=== PATIENT | female | born 1995 | race Hispanic/Latino ===

== ENCOUNTER 2021-01-15 13:36 | Emergency (ER) | payer OTHER, SELFPAY ==
[2021-01-15 14:25] LABS: Urine Blood 3+ (Negative); Urine Glucose Negative (Negative); Urine Protein 2+ (Negative); Urine Specific Gravity >=1.030 (1.005-1.030)
[2021-01-15 15:16] LABS: Urine Specific Gravity/Preg >1.030 (1.005-1.030)
[2021-01-15 16:00] LABS: Absolute Lymphocytes (CBC) 1.7 K/uL (0.7-4.9); Basophils % 0.3 % (0-1.3); Hematocrit 37.7 % (36.0-45.0); Lymphocytes % 13.9 % (15.3-44.8); MPV 7.3 fL (7.6-11.3); RBC Red Blood Cell Count 4.43 M/uL (3.86-4.86)
[2021-01-15] MEDS ORDERED: NA CHLORIDE 0.9% 1,000 ML ONE (16:05)
[2021-01-15 16:16] LABS: ALT/SGPT 19 U/L (12-78); AST/SGOT 12 U/L (15-37); Albumin 4.1 g/dL (3.4-5.0); Alkaline Phosphatase 88 U/L (45-117); BUN Blood Urea Nitrogen 12 mg/dL (7-18); Bicarbonate 26 mmol/L (21-32); Bilirubin Direct < 0.1 mg/dL (0-0.2); Bilirubin Total 0.2 mg/dL (0.2-1.0); Glucose Level 95 mg/dL (74-106); Lipase 91 U/L (73-393); Potassium 3.5 mmol/L (3.5-5.1); Protein, Total 8.3 g/dL (6.4-8.2); Sodium Level 139 mmol/L (136-145)
--- NOTE | 2021-01-15 16:58 | RAD REPORT ---
EXAM DESCRIPTION: CTAbdomen Pelvis W Contrast - 01/15/2021 4:47 pm CLINICAL HISTORY: Abdominal pain. LLQ;Abd pain COMPARISON: No comparisons TECHNIQUE: Biphasic CT imaging of the abdomen and pelvis was performed with 100 ml non-ionic IV cont rast. All CT scans are performed using dose optimization technique as appropriate and may include automated exposure control or mA/KV adjustment according to patient size. FINDINGS: The lung bases are clear. Small hiatal hernia. The liver, spleen, pancreas, adrenal glands and kidneys are within normal limits. No bowel obstruction, free air, free fluid or abscess. The appendix is normal. No evidence of signi ficant lymphadenopathy. No suspicious bony findings. IMPRESSION: No acute intra-abdominal or pelvic finding.
--- NOTE | 2021-01-15 18:25 | EDPHYS ---
Physician Documentation [facility] Name: Rachel Wilhelm Age: 25 yrs Sex: Female : 1995 Arrival Date: 01/15/2021 Time: 13:44 Bed 27 Private MD: ED Physician Calos Franco HPI: 01/15 16:14 This 25 yrs old Female presents to ER via Ambulatory with complaints of kdr Constipation, Urinary Issue. 16:14 The patient presents with abdominal pain in the lower abdomen, in the left lower kdr quadrant. Onset: The symptoms/episode began/occurred suddenly, yesterday, at 04:00. The symptoms do not radiate. Associated signs and symptoms: Pertinent positives: Being in small amount of defecation. The symptoms are described as achy, crampy, intermittent, stabbing, vague, waxing/waning. Modifying factors: The symptoms are alleviated by nothing, the symptoms are aggravated by coughing, breathing deeply, emotional upset, movement. Severity of pain: At its worst the pain was moderate in the emergency department the pain has improved moderately. The patient has not experienced similar symptoms in the past. The patient has not recently seen a physician. Historical: - Allergies: 14:00 No Known Allergies; tw2 - Home Meds: 14:00 None [Active]; tw2 - PMHx: 14:00 None; tw2 - PSHx: 14:00 None; tw2 - Immunization history:: Client reports having NOT received the Covid vaccine. - Social history:: Smoking status: Patient denies any tobacco usage or history of. ROS: 16:14 Constitutional: Negative for fever, chills, and weight loss, Eyes: Negative for injury, kdr pain, redness, and discharge, Neck: Negative for injury, pain, and swelling, Cardiovascular: Negative for chest pain, palpitations, and edema, Respiratory: Negative for shortness of breath, cough, wheezing, and pleuritic chest pain, Back: Negative for injury and pain, : Negative for injury, bleeding, discharge, and swelling, MS/Extremity: Negative for injury and deformity, Skin: Negative for injury, rash, and discoloration, Neuro: Negative for headache, weakness, numbness, tingling, and seizure activity. Psych: Negative for depression, anxiety, suicide ideation, homicidal ideation, and hallucinations, Allergy/Immunology: Negative for hives, rash, and allergies, Endocrine: Negative for neck swelling, polydipsia, polyuria, polyphagia, and marked weight changes, Hematologic/Lymphatic: Negative for swollen nodes, abnormal bleeding, and unusual bruising. 16:14 Abdomen/GI: Positive for abdominal pain, abdominal cramps, Negative for vomiting, abdominal distension, anorexia, dysphagia, hematemesis, black/tarry stool, rectal pain, rectal bleeding. Exam: 16:14 Constitutional: This is a well developed, well nourished patient who is awake, alert, kdr and in no acute distress. Head/Face: Normocephalic, atraumatic. Eyes: Pupils equal round and reactive to light, extra-ocular motions intact. Lids and lashes normal. Conjunctiva and sclera are non-icteric and not injected. Cornea within normal limits. Periorbital areas with no swelling, redness, or edema. Neck: Trachea midline, no thyromegaly or masses palpated, and no cervical lymphadenopathy. Supple, full range of motion without nuchal rigidity, or vertebral point tenderness. No Meningismus. Chest/axilla: Normal chest wall appearance and motion. Nontender with no deformity. No lesions are appreciated. Cardiovascular: Regular rate and rhythm with a normal S1 and S2. No gallops, murmurs, or rubs. Normal PMI, no JVD. No pulse deficits. Respiratory: Lungs have equal breath sounds bilaterally, clear to auscultation and percussion. No rales, rhonchi or wheezes noted. No increased work of breathing, no retractions or nasal flaring. Back: No spinal tenderness. No costovertebral tenderness. Full range of motion. Skin: Warm, dry with normal turgor. Normal color with no rashes, no lesions, and no evidence of cellulitis. MS/ Extremity: Pulses equal, no cyanosis. Neurovascular intact. Full, normal range of motion. Neuro: Awake and alert, GCS 15, oriented to person, place, time, and situation. Cranial nerves II-XII grossly intact. Motor strength 5/5 in all extremities. Sensory grossly intact. Cerebellar exam normal. Normal gait. 16:14 Abdomen/GI: Inspection: abdomen appears normal, Bowel sounds: normal, Palpation: soft, mild abdominal tenderness, in the left lower quadrant, mass, is not appreciated, rebound tenderness, is not appreciated, voluntary guarding, involuntary guarding. Vital Signs: 13:58 BP 126 / 85; Pulse 110; Resp 17; Temp 98.2(TE); Pulse Ox 100% on R/A; Weight 77.11 kg tw2 (R); Height 5 ft. 6 in. (167.64 cm); Pain 3/10; 19:11 BP 121 / 78; Pulse 88; Resp 17; Pulse Ox 100% on R/A; oh 13:58 Body Mass Index 27.44 (77.11 kg, 167.64 cm) tw2 MDM: 16:14 Data reviewed: vital signs, nurses notes, lab test result(s), radiologic studies. kdr Counseling: I had a detailed discussion with the patient and/or guardian regarding: the historical points, exam findings, and any diagnostic results supporting the discharge/admit diagnosis, lab results, radiology results, the need for outpatient follow up. 18:24 Patient medically screened. kdr 19:22 ED course: Given the blood and ketones and protein in the urine along with the elevated kdr white count and negative abdominal CT, give the patient 3 days of Bactrim to cover possible occult UTI. ED course: Patient was happy with the care provided and the plan for discharge and follow-up. 01/15 14:25 Order name: Urine Dipstick-Ancillary EDMS 01/15 14:26 Order name: Urine --Ancillary (enter results); Complete Time: 18:21 bd 01/15 15:34 Order name: Basic Metabolic Panel; Complete Time: 18:21 kdr 01/15 15:34 Order name: CBC with Diff; Complete Time: 18:21 kdr 01/15 15:34 Order name: Hepatic Function; Complete Time: 18:21 kdr 01/15 15:34 Order name: Lipase; Complete Time: 18:21 kdr 01/15 15:34 Order name: IV Saline Lock; Complete Time: 15:52 kdr 01/15 15:34 Order name: Labs collected and sent; Complete Time: 15:52 kdr 01/15 15:34 Order name: CT Abd/Pelvis - IV Contrast Only; Complete Time: 18:21 kdr Administered Medications: 15:42 Drug: NS 0.9% 1000 ml Route: IV; Rate: 1 bolus; Site: right antecubital; oh Point of Care Testing: Urine : 14:26 hCG Reading: Negative; oh Disposition Summary: 01/15/21 18:24 Discharge Ordered Location: Home kdr Problem: new kdr Symptoms: have improved kdr Condition: Stable kdr Diagnosis - Abdominal pain, unspecified kdr Followup: kdr - With: Private Physician - When: 2 - 3 days - Reason: If symptoms return, Further diagnostic work-up, Recheck today's complaints, Continuance of care, Re-evaluation by your physician Discharge Instructions: - Discharge Summary Sheet kdr - Abdominal Pain, Adult kdr Forms: - Medication Reconciliation Form kdr - Thank You Letter kdr Prescriptions: - Bactrim DS 800-160 mg Oral Tablet - take 1 tablet by ORAL route every 12 hours for 3 days; 6 tablet; Refills: 0, kdr Product Selection Permitted Signatures: Dispatcher [employer] Calos Ulloa MD MD kdr Miriam Huffman RN RN tw2 Deborah Deleon RN RN oh
--- NOTE | 2021-01-15 18:25 | ER ---
Nurse's Notes [facility] Name: Rachel Wilhelm Age: 25 yrs Sex: Female : 1995 Arrival Date: 01/15/2021 Time: 13:44 Bed 27 Private MD: Diagnosis: Abdominal pain, unspecified Presentation: 01/15 13:58 Chief complaint: Patient states: i am having lower abdominal pain on the left side that tw2 started at 4 am. but yesterday i was having lower back pain. i also feel more bloated throughout today. and burning with urination. LBM Wednesday. Coronavirus screen: At this time, the client does not indicate any symptoms associated with coronavirus-19. Ebola Screen: Patient denies travel to an Ebola-affected area in the 21 days before illness onset. Initial Sepsis Screen: Does the patient meet any 2 criteria? No. Patient's initial sepsis screen is negative. Does the patient have a suspected source of infection? No. Patient's initial sepsis screen is negative. Risk Assessment: Do you want to hurt yourself or someone else? Patient reports no desire to harm self or others. Onset of symptoms was January 15, 2021. 13:58 Method Of Arrival: Ambulatory tw2 13:58 Acuity: SHONNA 3 tw2 Triage Assessment: 14:00 General: Appears in no apparent distress. uncomfortable, Behavior is calm, cooperative, tw2 appropriate for age. Pain: Complains of pain in abdomen Pain radiates to back. GI: Reports lower abdominal pain, upper abdominal pain. : Reports burning with urination. Historical: - Allergies: 14:00 No Known Allergies; tw2 - Home Meds: 14:00 None [Active]; tw2 - PMHx: 14:00 None; tw2 - PSHx: 14:00 None; tw2 - Immunization history:: Client reports having NOT received the Covid vaccine. - Social history:: Smoking status: Patient denies any tobacco usage or history of. Screenin:08 Abuse screen: Denies threats or abuse. Nutritional screening: No deficits noted. tw2 Tuberculosis screening: No symptoms or risk factors identified. Fall Risk None identified. Assessment: 14:07 Reassessment: pt given urine specimen collection cup at this time. tw2 14:35 GI: Reports bloating, constipation. : Reports decrease urination. oh 14:36 GI: Reports lower abdominal pain. : Reports burning with urination. oh Vital Signs: 13:58 BP 126 / 85; Pulse 110; Resp 17; Temp 98.2(TE); Pulse Ox 100% on R/A; Weight 77.11 kg tw2 (R); Height 5 ft. 6 in. (167.64 cm); Pain 3/10; 19:11 BP 121 / 78; Pulse 88; Resp 17; Pulse Ox 100% on R/A; oh 13:58 Body Mass Index 27.44 (77.11 kg, 167.64 cm) tw2 ED Course: 13:44 Patient arrived in ED. ds1 14:00 Triage completed. tw2 14:00 Arm band placed on. tw2 14:01 Bed in low position. Call light in reach. Adult w/ patient. tw2 14:17 Deborah Deleon, RN is Primary Nurse. oh 14:18 Calos Franco MD is Attending Physician. kdr 14:34 Urine Dipstick-Ancillary Sent. oh 14:34 Urine --Ancillary (enter results) Sent. oh 15:53 Inserted saline lock: 20 gauge in right antecubital area, using aseptic technique. oh Blood collected. 16:47 CT Abd/Pelvis - IV Contrast Only In Process Unspecified. EDMS 19:10 IV discontinued, bleeding controlled, Pressure dressing applied. oh 19:10 No provider procedures requiring assistance completed. oh Administered Medications: 15:42 Drug: NS 0.9% 1000 ml Route: IV; Rate: 1 bolus; Site: right antecubital; oh Point of Care Testing: Urine : 14:26 hCG Reading: Negative; oh Outcome: 18:24 Discharge ordered by . kdr 19:10 Discharged to home oh 19:10 Condition: stable 19:10 Discharge instructions given to patient, family. 19:51 Patient left the ED. em Signatures: Dispatcher [employer] EDPA Calos Franco MD MD kdr Munoz, Edgar RN RN em Evita Dickson ds1 Miriam Huffman RN RN tw2 Deborah Deleon, RN RN oh
[2021-01-15 20:06] VITALS: TEMP 98.2; O2SAT 100
[2021-01-15 20:07] VITALS: BP 121/78
== END 2021-01-15 19:51 | disposition home or self-care (01) ==
LOC: ER 13:36
DX: R10.32 Left lower quadrant pain (principal)
CPT/HCPCS: 36415; 74177; 80048; 80076; 81003; 81025; 83690; 85025; 99284; J7030; Q9967